=== PATIENT | female | born 1955 | race Asian ===

== ENCOUNTER 2017-08-09 09:57 | Outpatient (CLI) | payer MEDICAID ==
--- NOTE | 2017-08-09 10:55 | XRay Report ---
Right hip 3 views: History: Back pain. Findings: No bony or articular abnormality. No fracture dislocation or soft tissue calcification. Multiple phleboliths in pelvis. Impression: Essentially negative right hip.
--- NOTE | 2017-08-09 10:55 | XRay Report ---
Lumbar spine 3 views: History: Back pain. Findings: There is osteopenia. Normal height of vertebral bodies. Minimal decrease in height of intervertebral disc spaces. Sclerotic at the symphysis with peripheral osteophyte suggestive of early degenerative changes. No fracture. No soft tissue calcification. Impression: Degenerative lumbar spine.
== END 2017-08-09 09:58 | disposition home or self-care (01) ==
LOC: SPVIMAG 09:57
PROVIDERS: ATTEND Internal Medicine Hematology & Oncology
DX: M85.88 Other specified disorders of bone density and structure, other site (principal); M25.78 Osteophyte, vertebrae; M25.551 Pain in right hip; I87.8 Other specified disorders of veins
CPT/HCPCS: 72100

== ENCOUNTER 2018-02-04 13:52 | Outpatient (CLI) | payer MEDICAID ==
--- NOTE | 2018-02-04 14:26 | Mammography Report ---
BILATERAL DIGITAL SCREENING MAMMOGRAM with CAD: 02/04/18 13:52:00 CLINICAL: Routine screening. COMPARISON:01/07/17 FINDINGS: The breasts are heterogeneously dense, which may obscure small masses. No mass, architectural distortion or suspicious calcifications. IMPRESSION: No mammographic evidence of malignancy. BI-RADS CATEGORY: 1 - - Negative RECOMMENDATION: Routine mammographic screening in one year. COMMENT: Patient follow-up letters are generated by our [employer] application.
== END 2018-02-04 13:53 | disposition home or self-care (01) ==
LOC: SPVWC 13:52
PROVIDERS: ATTEND Surgery
DX: Z12.31 Encounter for screening mammogram for malignant neoplasm of breast (principal)
CPT/HCPCS: 77067

== ENCOUNTER 2018-02-21 12:28 | Outpatient (CLI) | payer MEDICAID | END 2018-02-21 12:29 | disposition home or self-care (01) | LOC: SPVWC 12:28 | PROVIDERS: ATTEND Internal Medicine Hematology & Oncology | DX: M79.661 Pain in right lower leg (principal); M79.662 Pain in left lower leg; M79.89 Other specified soft tissue disorders; D47.3 Essential (hemorrhagic) thrombocythemia; D75.9 Disease of blood and blood-forming organs, unspecified; D63.8 Anemia in other chronic diseases classified elsewhere | CPT/HCPCS: 93970 ==

== ENCOUNTER 2019-02-10 08:50 | Outpatient (CLI) | payer MEDICARE ==
--- NOTE | 2019-02-10 11:24 | Mammography Report ---
BILATERAL DIGITAL SCREENING MAMMOGRAM with CAD : 02/10/19 08:50:00 CLINICAL: Routine screening. COMPARISON:02/04/18 FINDINGS: The breasts are heterogeneously dense, which may obscure small masses and both breasts have become diffusely more dense with greater bilateral skin thickening since the last exam. No mass, architectural distortion or suspicious calcifications. IMPRESSION: No mammographic evidence of malignancy. Increased breast density and skin thickening which suggest systemic disease such as heart failure or renal failure. BI-RADS CATEGORY: 2 -- Benign RECOMMENDATION: Routine mammographic screening in one year. COMMENT: Patient follow-up letters are generated by our [employer] application.
== END 2019-02-10 08:51 | disposition home or self-care (01) ==
LOC: SPVWC 08:50
PROVIDERS: ATTEND Surgery
DX: Z12.31 Encounter for screening mammogram for malignant neoplasm of breast (principal)
CPT/HCPCS: 77067